=== PATIENT | female | born 1965 | race Caucasian/White ===

== ENCOUNTER → 2022-01-22 | Outpatient (CLI) | payer MEDICAID, SELFPAY ==
[2022-01-25 21:11] LABS: Chlamydia By Nucleic Acid AMP Negative (Negative)
[2022-01-26 07:40] LABS: Gonococcus By Nucleic Acid AMP Negative (Negative)
[2022-01-28 14:28] LABS: HPV APTIMA, High Risk Negative (Negative)
== END | disposition home or self-care (01) ==
LOC: LABSPEC 09:11
PROVIDERS: Visit Provider Obstetrics & Gynecology
DX: Z12.4 Encounter for screening for malignant neoplasm of cervix (principal)
CPT/HCPCS: 87491; 87591; 87624; 88175; G0145

== ENCOUNTER 2024-11-22 07:18 | Day surgery (SDC) | payer SELFPAY ==
[2024-11-22] VITALS (7 sets, daily range): BP systolic 98–124; BP diastolic 65–73; PULSE 66–87; RESP 16–18; TEMP 36.5–36.8; O2SAT 96–99; BMI 28.6
--- NOTE | 2024-11-22 07:50 | PRE.ANES_ITS ---
ASA Classification* ASA Classification ASA Classification: 1 Assessment & Plan Anesthesia* Anesthesia Assessment Anesthesia Assessment: Discussed sedation and/or anesthesia options, risks, benefits, and alternatives with patient/parents/legal guardian/POA. Questions invited. The patient/parents/legal guardian/POA seems to understand and agrees to proceed with anesthesia plan. Reviewed the physical assessment, medical history, allergy history and patient home medications list prior to surgery/procedure/anesthetic and documented any changes. Performed airway and anesthesia risk assessments. Anesthesia Type Anesthesia Type: MAC History Source History Obtained from:: Patient and Chart Anesthesia Focused Assessment* Temperature: 98.2 F Pulse Rate: 85 Blood Pressure: 120/73 Respiratory Rate: 18 Pulse Ox: 97 Oxygen Delivery Method: Room Air Airway Assessment Mouth opens: >3 cm Mallampati Score: I Teeth Condition: Intact Neck Range of motion (ROM): Full ROM Focused Labs Anesthesia Preop lab: CBC CHEMISTRY COAG Pre-Assessment Diagnosis/Proposed Procedure Planned Operative Procedure(s): Colonoscopy - Open Access Anesthesia History Anesthesia History - care services manager: Anesthesia History - care services manager Hx Hospitalization No 11/16/24 12:17 Any Problems With Anesthesia No 11/16/24 12:17 Cholinesterase deficiency No 11/16/24 12:17 You/Your Family Experience No 11/16/24 12:17 fever (hyperthermia) with Relationship Recent Exposure to Contagious No 11/22/24 07:39 Disease Does patient have nerve No 11/16/24 12:17 stimulator Patient instructed to have device shut off --Does patient have Pacemaker No 11/22/24 07:39 or ICD? When Was Last Pacemaker Check QUESTION #4 FULL TEXT: You/Your Family Experience fever (hyperthermia) with Anesthesia Last Oral Intake Last Oral intake: Last Oral Intake NPO since 04:00 11/22/24 07:39 Meds taken in AM with sips of No 11/22/24 07:39 water? Meds patient instructed to take am of surgery Any additional information?: Yes NPO since: 04:00 (Patient finished prep at 4 AM.) PONV PONV - care services manager: PONV - care services manager Female Yes 11/16/24 12:17 HX of Motion Sickness Yes 11/16/24 12:17 HX of N/V After Surgery No 11/16/24 12:17 Non-Smoker Yes 11/16/24 12:17 Duration of Surgery greater No 11/16/24 12:17 than 60 minutes Number of Risk Factors 3 11/16/24 12:17 PONV Score Moderate Risk 11/16/24 12:17 Height & Weight Height & Weight: Anesthesia: Height & Weight Height 5 ft 7 in 11/22/24 07:39 Weight: 83 kg 11/22/24 07:39 Body Mass Index (BMI) 28.6 11/22/24 07:39 Respiratory Assessment Respiratory Assessment - care services manager: Respiratory Tract Infection Hx - care services manager Hx Respiratory Tract Infection Yes 11/16/24 12:17 Any additional information?: Yes Hx Respiratory Tract Infection: Yes (Patient had a cold in the last week. Clear for the past couple days) STOP Sleep Apnea STOP Sleep Apnea - care services manager: STOP Sleep Apnea - care services manager Hx Hypertension No 11/16/24 12:17 Hx Sleep Apnea No 11/16/24 12:17 CPAP BIPAP Do you snore loudly (louder No 11/16/24 12:17 than talking or can be heard Do you often feel tired/ No 11/16/24 12:17 fatigued/ sleepy during daytime? Has anyone observed you stop No 11/16/24 12:17 breathing during sleep? STOP Results Negative 11/16/24 12:17 QUESTION #5 FULL TEXT : Do you snore loudly (louder than talking or can be heard through closed doors)? 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 Specify any problems Hx of Preganancy in last 3 No 11/16/24 12:17 Months Nurse Filling Out Transfusion JZOLLINGE 11/16/24 12:17 & Questions: Date: 11/16/24 11/16/24 12:17 Time: 12:22 11/16/24 12:17 Patient unable to answer at this time (ie. confused, unrespo /Reproduction History /Reproductive History - care services manager: /Reproductive Hx- care services manager Hx Now No 11/16/24 12:17 Gestational Age (in weeks): EDC: Hx Hx Para Hx Section SAB No 11/16/24 12:17 [facility] Medical History Wears contact lenses Wears glasses Heartburn Non-smoker Family history of malignant neoplasm of colon in first degree relative diagnosed when younger than 60 years of age Abnormal Pap smear of cervix Closed fracture Home Medications ?Medication ?Instructions ?Recorded ?Last Taken ?Type acetaminophen 325 mg tablet 325 mg PO ONCE PRN fever o r pain 09/19/24 Unknown History (Tylenol) Allergy/AdvReac Type Severity Reaction Status Date / Time codeine AdvReac Mild Nausea/Vom/ Verified 11/22/24 07:38 Diarrhea Family History Grandmother CVA (cerebral vascular accident) Ovarian cancer x2 Sister Colon cancer, Onset Age: 60 Surgical History (Updated 11/22/24 @ 07:[address] John Mccord MD) Fracture of right lower leg History of tonsillectomy Social History household members: significant other current occupational status: employed Smoking Status: Never smoker alcohol intake: current details: occasionally substance use type: does not use caffeine: Yes what type of physical activity do you participate in: walking, running and weight training frequency: 3-4 times per week seatbelt use: always do you feel safe at home: Yes additional social history: Boyfriend- Thomas Review of Systems (Anesthesia) ROS Narrative System reviewed and no additional complaints, except as documented.
--- NOTE | 2024-11-22 08:30 | COLBX_PTH ---
PATIENT: STEVE VALENTIN LOC: EN U#:[id number] AGE/SX: 59/F ROOM: RE11/22/[address]: Dr. Jamie Ventura DO : 1965 BED: DIS: 11/22/2024 SPEC #: [id number] RECD: 11/22/24 10:56 STATUS: ALEX DARIO #: [id number] MARTHA: 11/22/24 08:[address]: Jamie Ventura DEPT: SURGICAL PATHOLOGY RECD BY: Tara Nunez ENTERED: 11/22/24 11:35 SP TYPE: COLON BX OTHR DR: Luz Maria Primary Care Phys Tissues: A - COLON BIOPSY B - Transverse colon Procedures: Surgery Specimen Level IV HEADER OPERATION: Colonoscopy with polypectomy PRE-OP DIAGNOSIS: Encounter for screening for malignant neoplasm of colon TISSUE SUBMITTED: A- Hepatic flexure polyp, B- Transverse colon polyp biopsy MICROSCOPIC DIAGNOSIS A. Colon, hepatic flexure, polyp, biopsy: * Tubular adenoma B. Transverse colon, polyp, biopsy * Tubular adenoma MICROSCOPIC DESCRIPTION Slides are reviewed. GROSS DESCRIPTION A. Received in formalin in a container labeled with the patient's name, date of , and hepatic flexure polyp are 3 glover-pink fragments of mucosal tissue ranging from 0.2 x 0.2 x 0.2 cm to 0.3 x 0.3 x 0.3 cm. Submitted in toto in A1. B. Received in formalin in a container labeled with the patient's name, date of , and transverse colon polyp biopsy is a 0.5 x 0.3 x 0.2 cm fragment of glover-pink mucosal tissue. Submitted in toto in B1. [facility] 11/23/2024 CPT:40027p2
--- NOTE | 2024-11-22 08:59 | PCM.HP.STD ---
[facility] - General General Date of Admission: 11/22/24 Date of Service: 11/22/24 Chief Complaint: Screening colonoscopy HPI Narrative STEVE VALENTIN, is a 59 F who presents today for screening colonoscopy. She has a sister that was diagnosed with colon cancer recently. She is not have any abdominal pain, chest pain or shortness of breath. She does not take any medicines on daily basis. [facility], [facility] Medical History Wears contact lenses Wears glasses Heartburn Non-smoker Family history of malignant neoplasm of colon in first degree relative diagnosed when younger than 60 years of age Abnormal Pap smear of cervix Closed fracture Home Medications ?Medication ?Instructions ?Recorded ?Last Taken ?Type acetaminophen 325 mg tablet 325 mg PO ONCE PRN fever or pain 09/19/24 Unknown History (Tylenol) Allergy/AdvReac Type Severity Reaction Status Date / Time codeine AdvReac Mild Nausea/Vom/ Verified 11/22/24 07:38 Diarrhea Family History Grandmother CVA (cerebral vascular accident) Ovarian cancer x2 Sister Colon cancer, Onset Age: 60 Surgical History Fracture of right lower leg History of tonsillectomy Social History household members: significant other current occupational status: employed Smoking Status: Never smoker alcohol intake: current details: occasionally substance use type: does not use caffeine: Yes what type of physical activity do you participate in: walking, running and weight training frequency: 3-4 times per week seatbelt use: always do you feel safe at home: Yes additional social history: Boyfriend- Thomas MCKINNEY Constitutional Constitutional: Denies fatigue, fever(s), poor appetite, weight gain or weight loss Gastrointestinal Gastrointestinal: Denies belching, bloating, change in bowel habits, change in stool character, chewing difficulty, coffee ground emesis, constipation, cramping, diarrhea, dyspepsia, dysphagia, early satiety, excessive flatus, fecal incontinence, heartburn, hematemesis, hematochezia, hemorrhoids, loose stools, melena, nausea, odynophagia, rectal bleeding, tenesmus, vomiting or weight changes Vital Signs Vital Signs Vital Signs: 11/22/24 07:39 11/22/24 07:39 11/22/24 07:56 Temperature 98.2 F 98.2 F Temperature Source Temporal Pulse Rate 85 85 Respiratory Rate 18 18 Respiratory Pattern Normal Blood Pressure 120/73 120/73 Blood Pressure Mean 88 Blood Pressure Source Monitor Blood Pressure Position Sitting Blood Pressure Location Right Arm Pulse Ox 97 97 Oxygen Delivery Method Room Air Room Air Weight Weight: 182 lb 15.739 oz Body Mass Index (BMI) 28.6 Physical Exam Const alert, oriented x3, no apparent distress and healthy appearing General Appearance: cooperative GI normal to inspection, nondistended, normoactive bowel sounds, soft to palpation, non-tender and non-distended Percussion: normal to percussion Rectal Exam: deferred Assessment & Plan Assessment/Plan (1) Encounter for screening for malignant neoplasm of colon: PLAN: She was explained alternatives, risk and benefits including not withstanding bleeding, infection, sepsis, perforation, need for emergent urgent . She will have an ASA of 3.
--- NOTE | 2024-11-22 09:51 | OP.COLON_ITS ---
Patient Name: Roxana Suarez Procedure Date: 11/22/2024 9:06 AM Date of : 1965 Age: 59 Procedure: Colonoscopy Indications: Screening for colorectal malignant neoplasm Providers: Jamie Ventura DO Referring MD: No Primary Care Physician Medicines: Monitored Anesthesia Care Patient Profile: This is a 59 year old female. Refer to note in patient chart for documentation of history and physical. Last Colonoscopy: none. The patient's first colonoscopy is today. Complications: No immediate complications. Procedure: Pre-Anesthesia Assessment: - Prior to the procedure, a History and Physical was performed, and patient medications and allergies were reviewed. The patient is competent. The risks and benefits of the procedure and the sedation options and risks were discussed with the patient. All questions were answered and informed consent was obtained. Patient identification and proposed procedure were verified by the physician in the pre-procedure area. Mental Status Examination: alert and oriented. Airway Examination: normal oropharyngeal airway and neck mobility. Respiratory Examination: clear to auscultation. CV Examination: normal. Prophylactic Antibiotics: The patient does not require prophylactic antibiotics. Prior Anticoagulants: The patient has taken no anticoagulant or antiplatelet agents except for NSAID medication. ASA Grade Assessment: II - A patient with mild systemic disease. After reviewing the risks and benefits, the patient was deemed in satisfactory condition to undergo the procedure. The anesthesia plan was to use monitored anesthesia care (MAC). Immediately prior to administration of medications, the patient was re-assessed for adequacy to receive sedatives. The heart rate, respiratory rate, oxygen saturations, blood pressure, adequacy of pulmonary ventilation, and response to care were monitored throughout the procedure. The physical status of the patient was re-assessed after the procedure. After I obtained informed consent, the scope was passed under direct vision. Throughout the procedure, the patient's blood pressure, pulse, and oxygen saturations were monitored continuously. The colonoscope was introduced through the anus and advanced to the cecum, identified by appendiceal orifice and ileocecal valve. The colonoscopy was performed without difficulty. The patient tolerated the procedure well. The quality of the bowel preparation was adequate. The ileocecal valve, appendiceal orifice, and rectum were photographed. Scope In: 9:19:31 AM Scope Withdrawal Time 0 hours 17 minutes 11 seconds Scope Out: 9:44:45 AM Total Procedure Duration Time 0 hours 25 minutes 14 seconds Findings: The perianal and digital rectal examinations were normal. A 4 mm polyp was found in the transverse colon. The polyp was sessile. The polyp was removed with a jumbo cold forceps. Resection and retrieval were complete. Verification of patient identification for the specimen was done. Estimated blood loss was minimal. A 9 mm polyp was found in the ascending colon. The polyp was sessile. The polyp was removed with a hot snare. Resection and retrieval were complete. Verification of patient identification for the specimen was done. To prevent bleeding post-intervention, one hemostatic clip was successfully placed. 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 There was no bleeding at the end of the procedure. Multiple small and large-mouthed diverticula were found in the recto-sigmoid colon, sigmoid colon and descending colon. Impression: - One 4 mm polyp in the transverse colon, removed with a jumbo cold forceps. Resected and retrieved. - One 9 mm polyp in the ascending colon, removed with a hot snare. Resected and retrieved. Clip was placed. 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 - Diverticulosis in the recto-sigmoid colon, in the sigmoid colon and in the descending colon. Recommendation: - Discharge patient to home. - Resume previous diet. - Continue present medications. - Await pathology results. - Repeat colonoscopy in 5 years for surveillance. Procedure Code(s): --- Professional --- 24272, Colonoscopy, flexible; with removal of tumor(s), polyp(s), or other lesion(s) by snare technique 62562, 59, Colonoscopy, flexible; with biopsy, single or multiple CPT copyright 2021 [employer]. All rights reserved. The codes documented in this report are preliminary and upon raw cheese worker review may be revised to meet current compliance requirements. Jamie Ventura DO 11/22/2024 9:50:58 AM This report has been signed electronically. Number of Addenda: 0 Note Initiated On: 11/22/2024 9:06 AM
--- NOTE | 2024-11-22 09:51 | OP.CCLET_ITS ---
11/22/2024 No Primary Care Physician Re : Colonoscopy procedure for Roxana Suarez Dear Care Physician This procedure was performed on November. My impressions and recommendations are as follows: Impressions : - One 4 mm polyp in the transverse colon, removed with a jumbo cold forceps. Resected and retrieved. - One 9 mm polyp in the ascending colon, removed with a hot snare. Resected and retrieved. Clip was placed. 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 - Diverticulosis in the recto-sigmoid colon, in the sigmoid colon and in the descending colon. Recommendations : - Discharge patient to home. - Resume previous diet. - Continue present medications. - Await pathology results. - Repeat colonoscopy in 5 years for surveillance. My findings are described in the full procedure note, which is enclosed. If I can be of further assistance, please feel free to contact me at . Sincerely, Jamie Ventura, 11/22/2024 9:50:58 AM This report has been signed electronically.
--- NOTE | 2024-11-22 09:56 | PCM.POST.ANE ---
Anesthesia: Postop Eval I Current Vital Signs Temperature: 97.7 F Pulse Rate: 67 Blood Pressure: 124/69 Respiratory Rate: 16 Pulse Ox: 99 Oxygen Delivery Method: Room Air Assessment Airway patent: Yes Spontaneous unlabored respirations: Yes Mental status: Awake and Calm nausea: No Vomiting: No Anesthesia Complication: No Fluid Hydration Crystalloid volume administer (ml): 75 Total IV fluid infused: 75 Progress Note Anesthesia document: Postop Eval 1 completed: Yes
--- NOTE | 2024-11-22 14:35 | PCM.POSTANE2 ---
Anesthesia Postop Eval I Sum Postop Eval Completion status Anesthesia document: Postop Eval 1 completed: Yes Anesthesia Postop Eval I Summary Anesthesia Postop Eval I Summary: Anesthesia Postop Eval I: Assessment Summary Airway patent Yes 11/22/24 09:57 [email or web address] Spontaneous unlabored Yes 11/22/24 09:57 [email or web address] respirations Mental status Awake,Calm 11/22/24 09:57 [email or web address] nausea No 11/22/24 09:57 [email or web address] Vomiting No 11/22/24 09:57 [email or web address] Anesthesia Postop Eval I: Fluid Summary Crystalloid volume administer 75 11/22/24 09:57 [email or web address] (ml) Colloids volume administered ( ml) Blood Product volume administered (ml) Total IV fluid infused 75 11/22/24 09:57 [email or web address] Anesthesia Postop Eval I: Summary Notes Anesthesia Complication No 11/22/24 09:57 [email or web address] Anesthesia Complication Comment: Post-operative progress note Anesthesia: Postop Eval II Evaluation Mental status: Awake and Calm Pain Level: 0 nausea: No Vomiting: No Complications Anesthesia Complication: No
== END 2024-11-22 10:20 | disposition home or self-care (01) ==
LOC: EN 07:27 → AC 07:28
PROVIDERS: Visit Provider Internal Medicine Gastroenterology
PROC: 0DJD8ZZ Inspection of Lower Intestinal Tract, Via Natural or Artificial Opening Endoscopic (ICD-10-PCS; CPT 45378; principal; 2024-11-22 08:25)
DX: Z12.11 Encounter for screening for malignant neoplasm of colon (principal); D12.3 Benign neoplasm of transverse colon; K57.30 Diverticulosis of large intestine without perforation or abscess without bleeding; Z80.0 Family history of malignant neoplasm of digestive organs
CPT/HCPCS: 45385; 45380; 88305; A4216; J2405